=== PATIENT | female | born 1985 | race Two or more races ===

== ENCOUNTER 2020-08-27 11:36 | Emergency (ER) | payer SELFPAY ==
[~2020-08-27] VITALS: Ht 160 cm; Wt 68.1 kg
[~2020-08-27 11:36] MED LIST: ACET-704 PO; AMOX1TAB61 PO; CODE1CAP8 PO; HYDR-3164 PO; IBUP-1027 PO; IBUP-1060 PO; LEVO500T59 PO; METO10TA81 PO; METR500T PO; NAPR-514 PO; OXYC1TAB15 PO
[2020-08-27] MEDS ORDERED: IV NORMAL SALINE 1000ML BAG 1,000 ML IV SCH (11:54)
--- NOTE | 2020-08-27 12:01 | PHYS DOC ---
Past Medical History Past Medical History: No Pertinent History Past Surgical History: No Surgical History Smoking Status: Current Every Day Smoker Alcohol Use: None Drug Use: None General Adult EDM: Chief Complaint: ABDOMINAL PAIN HPI: HPI: Patient is a 34 year old female who presents with sharp nonradiating right lower abdominal pain that started yesterday. She states Tylenol helped her yesterday. She states is worse today. She states that when she tries to bear down the pain worsens. Patient states she had a bowel movement this morning that was normal for her. She states she is also been having a lot of gas and she has been drinking a lot of milk. Patient states her last menstural period was last week. She states that in the past she has had tonsillectomy and vaginal delivery. Patient denies taking medications daily. She is does smoke cigarettes. Patient denies nausea, vomiting, diarrhea, dysuria, constipation, back pain, fever, chest pain, shortness of air, cough, headache, dizziness. She rates her pain an 8 out of 10. Review of Systems: Review of Systems: Constitutional: Denies fever or chills. [] Eyes: Denies change in visual acuity. [] HENT: Denies nasal congestion or sore throat. [] Respiratory: Denies cough or shortness of breath. [] Cardiovascular: Denies chest pain or edema. [] GI: RLQ abdominal pain, Gas, denies nausea, vomiting, bloody stools or diarrhea. [] : Denies dysuria. [] Musculoskeletal: Denies back pain or joint pain. [] Integument: Denies rash. [] Neurologic: Denies headache, focal weakness or sensory changes. [] Endocrine: Denies polyuria or polydipsia. [] Lymphatic: Denies swollen glands. [] Psychiatric: Denies depression or anxiety. [] Heart Score: Risk Factors: Risk Factors: DM, Current or recent (<one month) smoker, HTN, HLP, family history of CAD, obesity. Risk Scores: Score 0 - 3: 2.5% MACE over next 6 weeks - Discharge Home Score 4 - 6: 20.3% MACE over next 6 weeks - Admit for Clinical Observation Score 7 - 10: 72.7% MACE over next 6 weeks - Early Invasive Strategies Allergies: Allergies: Allergies Coded Allergies Type Severity Reaction Last Updated Verified No Known Drug Allergies 12/19/15 No Physical Exam: PE: Constitutional: Well developed, well nourished, no acute distress, non-toxic appearance. [] HENT: Normocephalic, atraumatic, bilateral external ears normal, oropharynx moist, no oral exudates, nose normal. [] Eyes: PERRLA, EOMI, conjunctiva normal, no discharge. [] Neck: Normal range of motion, no tenderness, supple, no stridor. [] Cardiovascular:Heart rate regular rhythm, no murmur [] Lungs & Thorax: Bilateral breath sounds clear to auscultation [] Abdomen: Bowel sounds normal, soft, RLQ tenderness, no masses, no pulsatile masses. [] Skin: Warm, dry, no erythema, no rash. [] Back: No tenderness, no CVA tenderness. [] Extremities: No tenderness, no cyanosis, no clubbing, ROM intact, no edema. [] Neurologic: Alert and oriented X 3, normal motor function, normal sensory function, no focal deficits noted. [] Psychologic: Affect normal, judgement normal, mood normal. [] EKG: EKG: [] Radiology/Procedures: Radiology/Procedures: [] Impression: [facility] [address] [place], [place] [id number] IMAGING REPORT Signed PATIENT: BENY CAVAZOS GACCOUNT: [id number] : 1985 LOCATION: ER AGE: 34 SEX: F EXAM STATUS: REG ER ORD. PHYSICIAN: MALINDA LOVE APRN REASON: right lower quad pain PROCEDURE: CT ABD PELV W/ IV CONTRST ONLY Exam performed: CT abdomen and pelvis with contrast HISTORY: Right lower quadrant abdominal pain for 2 days. DATE OF SERVICE: 08/27/2020. COMPARISON: None available TECHNIQUE: Contiguous helical acquisitions are obtained through the abdomen and pelvis during intravenous administration of 75 cc of Omnipaque 300. Sagittal and coronal reformatted images are obtained and reviewed. FINDINGS: 4 mm soft tissue density pleural-based nodule seen in the lateral right lower lobe as well as a 3.2 mm soft tissue density nodule in the lateral left lower lobe (axial image ). The visualized heart is normal. There is no pleural effusion. The liver, gallbladder, spleen and pancreas are normal. Both adrenal glands and bilateral kidneys are normal in size with symmetric excretion of contrast via both kidneys. There is no hydronephrosis or nephrolithiasis. Aorta is normal in caliber without aneurysm. Small and large bowel loops are nondilated and unremarkable. There is scattered stool in the colon. Visualized appendix is normal. No inflammatory changes seen in the right lower quadrant. The urinary bladder is decompressed. There is a 8.8 x 5.9 cm low attenuating right adnexal mass extending to the midline and causing mass effect on the urinary bladder. There is no free fluid. IMPRESSION: 8.8 x 5.9 cm low attenuating right adnexal mass extending into the midline causing displacement of adjacent structures. This perhaps is ovarian cyst. Evaluation with pelvic ultrasound may be obtained to further evaluate. Tiny soft tissue density nodules in both lung bases as outlined above. While this may be related to remote granulomatous infection, however dedicated CT chest may be obtained to evaluate for evidence of additional nodules Appendix is normal. PQRS Compliance Statement: One or more of the following individualized dose reduction techniques were utilized for this examination: 1. Automated exposure control 2. Adjustment of the mA and/or kV according to patient size 3. Use of iterative reconstruction technique Electronically signed by: Karlie Call MD (08/27/2020 1:28 PM) [id number] DICTATED and SIGNED BY: KARLIE CALL MD DATE: 08/27/20 1328 [facility] [address] [place], [place] [id number] IMAGING REPORT Signed PATIENT: BENY CAVAZOS GACCOUNT: [id number] : 1985 LOCATION: ER AGE: 34 SEX: F EXAM STATUS: REG ER ORD. PHYSICIAN: MALINDA LOVE APRN REASON: ABNORMAL CT PROCEDURE: PELVIS ULTRASOUND Pelvic ultrasound 08/27/2020. Reason for exam: Pain. Abnormal CT. FINDINGS: Uterus is normal in configuration. It measures about 11.1 x 6.6 x 5.1 cm. Endometrial thickness appears normal for age measuring about 8 mm. No fibroid is seen. The left ovary appears normal. In the right adnexal area is a large simple appearing cystic structure presumably arising from the ovary. This measures 7.3 x 5.4 x 5.1 cm. No internal septations or nodularity are seen. There is peripheral blood flow. There is no separate pelvic mass or inflammatory process. IMPRESSION: There is a simple appearing right adnexal cyst probably arising from the ovary. This corresponds to the CT finding. A prior CT done 11/24/2018 shows a similar finding with possible slight enlargement during the interim. Electronically signed by: Naima Brown Jr., MD (08/27/2020 5:13 PM) [id number] DICTATED and SIGNED BY: NAIMA BROWN Jr, MD DATE: 08/27/20 1713 Course & Med Decision Making: Course & Med Decision Making Pertinent Labs and Imaging studies reviewed. (See chart for details) Alert and oriented x4. Ambulatory with steady gait. Right lower quadrant tenderness but no rebound tenderness. Abdomen is otherwise soft. Patient states that she does feel bloated. No CVA tenderness. [] Dragon Disclaimer: Dragon Disclaimer: This electronic medical record was generated, in whole or in part, using a voice recognition dictation system. 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 Take Ibuprofen for your pain. Justicifation of Admission Dx: Justifications for Admission: Justification of Admission Dx: N/A MALINDA LOVE [facility]ER [facility] Aug 27, 2020 12:01
[2020-08-27 12:16] LABS: BASO % 0 % (0-3); EOS % 1 % (0-3); HEMATOCRIT 34.2 % (36.0-47.0); HEMOGLOBIN 11.3 g/dL (12.0-15.5); LYMPH # 1.4 x10^3/uL (1.0-4.8); LYMPH % 22 % (24-48); MEAN CORPUSCULAR HEMOGLOBIN 25 pg (25-35); MEAN CORPUSCULAR HGB CONC 33 g/dL (31-37); MEAN CORPUSCULAR VOLUME 76 fL (79-100); MONO # 0.4 x10^3/uL (0.0-1.1); MONO % 7 % (0-9); NEUT # 4.4 x10^3/uL (1.8-7.7); NEUT % 70 % (31-73); PLATELET COUNT 345 x10^3/uL (140-400); RED BLOOD COUNT 4.52 x10^6/uL (3.50-5.40); RED CELL DISTRIBUTION WIDTH 17.5 % (11.5-14.5); WHITE BLOOD COUNT 6.3 x10^3/uL (4.0-11.0)
[2020-08-27 12:18] LABS: BILIRUBIN,URINE NEGATIVE (NEG); CLARITY,URINE CLOUDY; COLOR,URINE YELLOW; NITRITE,URINE NEGATIVE (NEG); PROTEIN,URINE NEGATIVE (NEG-TRACE); UROBILINOGEN,URINE 0.2 mg/dL (0.2 mg/dL)
[2020-08-27 12:26] LABS: AMORPHOUS SEDIMENT,UR PRESENT /HPF; SQUAMOUS EPITHELIAL CELL,UR MANY /LPF
[2020-08-27 12:27] LABS: CALCIUM 8.9 mg/dL (8.5-10.1); CREATININE 0.8 mg/dL (0.6-1.0); GFR 82.6; POTASSIUM 4.1 mmol/L (3.5-5.1)
[2020-08-27 12:27] LABS: BACTERIA,URINE MODERATE /HPF (0-FEW); RBC,URINE 0 /HPF (0-2)
[2020-08-27 12:30] LABS: PROTHROMBIN TIME PATIENT 12.1 SEC (11.7-14.0)
[2020-08-27 12:33] LABS: ALBUMIN 3.4 g/dL (3.4-5.0); ALBUMIN/GLOBULIN RATIO 0.9 (1.0-1.7); TOTAL BILIRUBIN 0.3 mg/dL (0.2-1.0); TOTAL PROTEIN 7.2 g/dL (6.4-8.2)
[2020-08-27] MEDS ORDERED: fentaNYL PF VIAL 100 MCG/2 ML VIAL IVP ONE ×2 (12:45→15:45)
[2020-08-27] MEDS ORDERED: IOHEXOL 300 MG/ML 100ML VIAL. IV ONE (13:00)
[2020-08-27] MEDS ORDERED: CONTRAST GIVEN. MC PRN (13:00)
--- NOTE | 2020-08-27 13:31 | RAD ---
Exam performed: CT abdomen and pelvis with contrast HISTORY: Right lower quadrant abdominal pain for 2 days. DATE OF SERVICE: 08/27/2020. COMPARISON: None available TECHNIQUE: Contiguous helical acquisitions are obtained through the abdomen and pelvis during intravenous administration of 75 cc of Omnipaque 300. Sagittal and coronal reformatted images are obtained and reviewed. FINDINGS: 4 mm soft tissue density pleural-based nodule seen in the lateral right lower lobe as well as a 3.2 mm soft tissue density nodule in the lateral left lower lobe (axial image 7/93). The visualized heart is normal. There is no pleural effusion. The liver, gallbladder, spleen and pancreas are normal. Both adrenal glands and bilateral kidneys are normal in size with symmetric excretion of contrast via both kidneys. There is no hydronephrosis or nephrolithiasis. Aorta is normal in caliber without aneurysm. Small and large bowel loops are nondilated and unremarkable. There is scattered stool in the colon. Visualized appendix is normal. No inflammatory changes seen in the right lower quadrant. The urinary bladder is decompressed. There is a 8.8 x 5.9 cm low attenuating right adnexal mass extending to the midline and causing mass effect on the urinary bladder. There is no free fluid. IMPRESSION: 8.8 x 5.9 cm low attenuating right adnexal mass extending into the midline causing displacement of adjacent structures. This perhaps is ovarian cyst. Evaluation with pelvic ultrasound may be obtained to further evaluate. Tiny soft tissue density nodules in both lung bases as outlined above. While this may be related to remote granulomatous infection, however dedicated CT chest may be obtained to evaluate for evidence of additional nodules Appendix is normal. PQRS Compliance Statement: One or more of the following individualized dose reduction techniques were utilized for this examination: 1. Automated exposure control 2. Adjustment of the mA and/or kV according to patient size 3. Use of iterative reconstruction technique Electronically signed by: Karlie Call MD (08/27/2020 1:28 PM) [id number]
--- NOTE | 2020-08-27 17:16 | RAD ---
Pelvic ultrasound 08/27/2020. Reason for exam: Pain. Abnormal CT. FINDINGS: Uterus is normal in configuration. It measures about 11.1 x 6.6 x 5.1 cm. Endometrial thickness appears normal for age measuring about 8 mm. No fibroid is seen. The left ovary appears normal. In the right adnexal area is a large simple appearing cystic structure presumably arising from the ovary. This measures 7.3 x 5.4 x 5.1 cm. No internal septations or nodularity are seen. There is peripheral blood flow. There is no separate pelvic mass or inflammatory process. IMPRESSION: There is a simple appearing right adnexal cyst probably arising from the ovary. This corresponds to the CT finding. A prior CT done 11/24/2018 shows a similar finding with possible slight enlargement during the interim. Electronically signed by: Bill Brown Jr., MD (08/27/2020 5:13 PM) [id number]
[2020-08-27 17:38] VITALS: BP 162/80
== END 2020-08-27 17:46 | disposition home or self-care (01) ==
LOC: ER 11:36
DX: N83.291 Other ovarian cyst, right side (principal); R91.1 Solitary pulmonary nodule; R10.31 Right lower quadrant pain; F17.200 Nicotine dependence, unspecified, uncomplicated
CPT/HCPCS: 36415; 74177; 76856; 80053; 81001; 81025; 83690; 85025; 85610; 87086; 96361; 96374; 96376; 99285; J3010; J7030; Q9967

== ENCOUNTER 2021-06-06 02:55 | Observation (INO) | payer SELFPAY ==
[2021-06-06] MEDS ORDERED: IV RINGERS,LACTATED 1000ML 1,000 ML IV PRN (03:30)
[2021-06-06 03:36] LABS: BILIRUBIN,URINE NEGATIVE (NEG); CLARITY,URINE CLEAR; COLOR,URINE YELLOW; NITRITE,URINE NEGATIVE (NEG); PH,URINE 6.5 (<5.0-8.0); PROTEIN,URINE NEGATIVE (NEG-TRACE); UROBILINOGEN,URINE 0.2 mg/dL (0.2 mg/dL)
[2021-06-06 03:43] LABS: BARBITURATES NEG (NEG); BENZODIAZEPINES NEG (NEG); CANNABINOIDS NEG (NEG); COCAINE NEG (NEG); METHADONE NEG (NEG); OPIATES NEG (NEG); PHENCYCLIDINE NEG (NEG)
[2021-06-06 03:44] LABS: AMORPHOUS SEDIMENT,UR PRESENT /HPF; BACTERIA,URINE FEW /HPF (0-FEW)
[2021-06-06 03:47] LABS: AMPHETAMINE/METHAMPHETAMINE NEG (NEG)
--- NOTE | 2021-06-06 07:15 | RAD ---
EXAM: US OB Limited CLINICAL HISTORY: Reason: OB Unk Gest,Dates,Size,Fluid level / Spl. Instructions: / History: . COMPARISON: None TECHNIQUE: Limited transabdominal ultrasound of the uterus was performed. FINDINGS: NUMBER: Single POSITION: cephalic FLORENTIN: 10.4 cm. PLACENTA: Location: Fundal Cord type: 3 vessel cord. ANATOMY: HEART RATE: 147 bpm COMMENTS: Anatomy not assessed. Current measurements are: BPD - 8.48 cm = 34 weeks 1 day HC -30.82 cm = 34 weeks 3 days AC - 30.6 cm = 34 weeks 4 days FL - 6.33 cm = 32 weeks 5 days Estimated weight: 2324 g. MATERNAL ANATOMY CERVIX Length (cm): 4.7 HISTORICAL DATES Last menstrual period: Unknown CALCULATED DATES EGA (LMP): Unknown GRISEL (LMP): Unknown EGA (US): 34 weeks 0 days GRISEL (US): 07/18/2021 IMPRESSION: 1. Single living intrauterine in cephalic position. 2. Estimated gestational age by ultrasound 34 weeks 0 days. GRISEL 07/18/2021. 3. EFW 2324 g. 4. FLORENTIN 10.4 cm. Electronically signed by: Betty San MD (06/06/2021 7:13 AM) [id number]
[2021-06-06 07:45] LABS: BASO % 1 % (0-3); EOS # 0.1 x10^3/uL (0.0-0.7); EOS % 2 % (0-3); HEMATOCRIT 31.4 % (36.0-47.0); LYMPH # 1.9 x10^3/uL (1.0-4.8); LYMPH % 26 % (24-48); MEAN CORPUSCULAR HEMOGLOBIN 21 pg (25-35); MEAN CORPUSCULAR HGB CONC 32 g/dL (31-37); MEAN CORPUSCULAR VOLUME 66 fL (79-100); MONO # 0.6 x10^3/uL (0.0-1.1); MONO % 8 % (0-9); NEUT # 4.5 x10^3/uL (1.8-7.7); NEUT % 64 % (31-73); PLATELET COUNT 324 x10^3/uL (140-400); RED BLOOD COUNT 4.74 x10^6/uL (3.50-5.40); RED CELL DISTRIBUTION WIDTH 17.7 % (11.5-14.5); WHITE BLOOD COUNT 7.1 x10^3/uL (4.0-11.0)
[2021-06-06 09:43] LABS: ANISOCYTOSIS SLIGHT; MICROCYTOSIS PRESENT; PLT ESTIMATE ADEQUATE (ADEQUATE)
[2021-06-08 01:27] LABS: GC PROBE Negative (Negative)
== END 2021-06-06 08:15 | disposition home or self-care (01) ==
LOC: 3 SO LND 02:55
PROVIDERS: ADMIT Obstetrics & Gynecology; ATTEND Obstetrics & Gynecology
DX: O36.8130 Decreased fetal movements, third trimester, not applicable or unspecified (principal); O26.893 Other specified pregnancy related conditions, third trimester; R10.9 Unspecified abdominal pain; R35.0 Frequency of micturition; Z3A.34 34 weeks gestation of pregnancy; Z79.899 Other long term (current) drug therapy; Z21 Asymptomatic human immunodeficiency virus [HIV] infection status
CPT/HCPCS: 36415; 59025; 76815; 80307; 81001; 85025; 86592; 86703; 86762; 86850; 86900; 86901; 87070; 87086; 87340; 87491; 87591; 87653; G0378; G0379; Q0111